=== PATIENT | female | born 1995 | race Caucasian/White ===

== ENCOUNTER 2016-11-30 20:29 | Emergency (ER) | payer MEDICAID, OTHER ==
[~2016-11-30] VITALS: Ht 157.5 cm; Wt 93.5 kg
[~2016-11-30 20:29] MED LIST: ALBU18HF INHALATION; AZIT250T94 PO; PRED20TA PO
[2016-11-30 20:32] VITALS: Ht 157.5 cm; Wt 93.5 kg
[2016-11-30] MEDS ORDERED: predniSONE 20 MG TAB PO STA (20:54)
[2016-11-30] MEDS ORDERED: IPRATROPIUM (NEB) 0.5 MG/2.5 ML AMP NEB STA (20:54)
[2016-11-30] MEDS ORDERED: ALBUTEROL 0.083% (NEB) 2.5 MG/3 ML AMP NEB STA (20:54)
[2016-11-30] MEDS ORDERED: ERYTOPOI BOTH EYES (21:45)
[2016-11-30] MEDS ORDERED: NPH10OT BOTH EARS (21:45)
[2016-11-30] MEDS ORDERED: PRED20TA PO (21:45)
[2016-11-30] MEDS ORDERED: ALBU8.5H3 INH (21:46)
--- NOTE | 2016-11-30 21:49 | ERD ---
ER Documentation Chief Complaint Date/Time DATE: 11/30/16 TIME: 21:47 Chief Complaint FEVER AND COUGH X 4 DAYS SOB AND WHEEZING HX OF ASTHMA HPI 21-year-old female has a history of asthma presents with fever and cough for the past 4 days. She is also bilateral eye redness with purulent drainage. She is also complaining of bilateral ear pain. Denies any bleeding or drainage from her ears. Also admits to sore throat. Denies any nausea or vomiting or diarrhea. ROS All systems reviewed and are negative except as per history of present illness. Medications Home Meds Active Scripts Albuterol Sulfate* (Proair HFA*) 8.5 Gm Hfa.aer.ad, 2 PUFF INH Q4, #1 INHALER Prov:DG POOLE PA-C 11/30/16 Neomycin/Polymyxin/Hydrocort* (Cortisporin* Otic) 10 Ml Susp, 4 DROP BOTH EARS QID, #1 EA Prov:DG POOLE PA-C 11/30/16 Prednisone* (Prednisone*) 20 Mg Tab, 40 MG PO DAILY for 4 Days, TAB Prov:DG POOLE PA-C 11/30/16 Erythromycin* (Erythromycin* Ophthalmic) 1 Applic Oint, 1 APPLIC BOTH EYES QID for 7 Days, EA Prov:DG POOLE PA-C 11/30/16 Albuterol Sulfate* (Ventolin HFA*) 18 Gm Hfa.aer.ad, 2 PUFF INHALATION Q4H, #1 INHALER Prov:BRETT SMITH MD 07/07/16 Prednisone* (Prednisone*) 20 Mg Tab, 40 MG PO DAILY for 4 Days, TAB Start July 08, 2016 Prov:BRETT SMITH MD 07/07/16 Azithromycin* (Zithromax*) 250 Mg Tablet, 250 MG PO .ZPACK DIRECTED, #6 TAB TAKE 500 MG (2 TABS) THE FIRST DAY THEN 250 MG (1 TAB) DAYS 2-5 Prov:BRETT SMITH MD 07/07/16 Allergies Allergies: Coded Allergies: No Known Drug Allergy (Verified Allergy, Mild, 11/30/16) PMhx/Soc Medical and Surgical Hx: pt denies Surgical Hx History of Surgery: No Hx Neurological Disorder: No Hx Cardiac Disorders: No Hx Psychiatric Problems: No Hx Miscellaneous Medical Probl: No Hx Alcohol Use: No Hx Substance Use: No Hx Tobacco Use: No Smoking Status: Never smoker FmHx Family History: No diabetes Physical Exam Vitals Vital Signs Date Time Temp Pulse Resp B/P Pulse Ox O2 Delivery O2 Flow Rate FiO2 11/30/16 21:31 108 18 96 21 11/30/16 20:32 98.0 111 22 155/94 98 Physical Exam General: well developed, well nourished, alert, nontoxic, no distress Head: normocephalic, atraumatic Eyes: PERRL, normal conjunctiva, scant drainage bilaterally Neck: Supple, nontender, no lymphadenopathy, no midline tenderness Ears: no tenderness over mastoids bilaterally, TMs nonerythematous, scant exudates in canal Oropharynx: no tonsilar erythema or edema, uvula midline, no exudates, no kissing tonsils, no drooling Respiratory: , speaks in full sentences, no use of accesory muscles or labored breathing, bilateral respiratory wheezing Cardiovascular: RRR, No murmurs GI: soft, non tender, non distended, negative murphys sign, negative mcburneys point tenderness, no cva tenderness bilaterally, no rebound or guarding Back: no midline tenderness, no step offs or bony abnormalities, sensation to light touch in tact Results 24 hrs Current Medications Medications (Trade) Dose Ordered Sig/Luisa Route PRN Reason Start Time Stop Time Status Last Admin Dose Admin Albuterol (Proventil 0.083% (Neb)) 2.5 mg ONCE STAT NEB 11/30/16 20:54 11/30/16 20:55 DC 11/30/16 21:30 Ipratropium [place] (Atrovent 0.02% (Neb)) 0.5 mg ONCE STAT NEB 11/30/16 20:54 11/30/16 20:55 DC 11/30/16 21:29 Prednisone (Prednisone) 60 mg ONCE STAT PO 11/30/16 20:54 11/30/16 20:55 DC 11/30/16 21:43 Procedures/MDM Patient presents with asthma exacerbation. She also has evidence of conjunctivitis and possible otitis externa. She had good relief of her symptoms with breathing treatment and prednisone. She is discharged with albuterol, prednisone, erythromycin ophthalmic ointment, and Cortisporin eardrops. Recommended this patient follow up with her primary care doctor within 48 hours or return to the emergency room for any worsening of symptoms. However this time I do believe there is suitable for outpatient management. I answered all their questions and they agreed with the plan and were discharged home. Departure Diagnosis: Primary Impression: Conjunctivitis Additional Impressions: Otitis externa Asthma Condition: Stable Patient Instructions: Asthma, Acute (Adult), External Ear Infection (Adult) Additional Instructions: Call your primary care doctor TOMORROW for an appointment during the next 1-2 days.See the doctor sooner or return here if your condition worsens before your appointment time. DG POOLE PA-C November 30, 2016 21:49
== END 2016-11-30 21:57 | disposition home or self-care (01) ==
LOC: FTE 20:29
DX: H10.9 Unspecified conjunctivitis (principal); H60.93 Unspecified otitis externa, bilateral; J45.901 Unspecified asthma with (acute) exacerbation; R05 Cough
CPT/HCPCS: 94664; J7512; Z7502; Z7610